=== PATIENT | female | born 1995 | race Caucasian/White ===

== ENCOUNTER 2019-09-05 14:07 | Emergency (ER) | payer SELFPAY ==
[~2019-09-05] VITALS: Ht 160 cm; Wt 88.5 kg
--- NOTE | 2019-09-05 15:55 | NUR ---
CORPORATE SPECIALIST: PT TO ROOM FROM [facility]
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
--- NOTE | 2019-09-05 16:10 | NUR ---
PATIENT REPORTS 30LB UNINTENTIONAL WEIGHT LOSS SINCE SYMPTOMS STARTED.
[2019-09-05 16:39] LABS: BASOPHILS # (AUTO) 0.11 x10^3/uL (0-0.1); BASOPHILS % (AUTO) 1 % (0-1); EOSINOPHILS % (AUTO) 1 % (1-7); LYMPHOCYTES # (AUTO) 2.62 x10^3/uL (1-3.4); LYMPHOCYTES % (AUTO) 23 % (22-44); MD NO; MEAN CORPUSCULAR HEMOGLOBIN 34.8 pg (27.0-34.8); MEAN CORPUSCULAR HGB CONC 33.5 g/dL (32.4-35.8); MEAN CORPUSCULAR VOLUME 103.9 fL (80-100); MEAN PLATELET VOLUME 7.9 fL (7.4-10.4); MONOCYTES # (AUTO) 0.68 x10^3/uL (0.2-0.8); MONOCYTES % (AUTO) 6 % (2-9); NEUTROPHILS # (AUTO) 7.86 x10^3/uL (1.8-6.8); NEUTROPHILS % (AUTO) 69 % (42-75); PLATELET COUNT 331 x10^3/uL (130-400); RED BLOOD COUNT 4.25 x10^6/uL (3.82-5.3); RED CELL DISTRIBUTION WIDTH 14.3 % (9.6-15.2)
--- NOTE | 2019-09-05 16:40 | NUR ---
PATIENT TO ULTRASOUND
[2019-09-05 16:50] LABS: ALBUMIN 4.1 g/dL (3.4-5.0); ANION GAP 8 mmol/L (5-15); CHLORIDE 107 mmol/L (98-107); CREATININE 0.72 mg/dL (0.55-1.02)
--- NOTE | 2019-09-05 17:28 | NUR ---
PATIENT BACK FROM
[2019-09-05 17:49] VITALS: BP 135/84
--- NOTE | 2019-09-05 18:19 | NUR ---
Patient/Caregiver given discharge instructions and they have confirmed that they understand the instructions. Patient ambulatory with steady gait.
== END 2019-09-05 18:27 | disposition home or self-care (01) ==
LOC: ED 18:17
DX: N92.1 Excessive and frequent menstruation with irregular cycle (principal); N93.8 Other specified abnormal uterine and vaginal bleeding; F17.200 Nicotine dependence, unspecified, uncomplicated
CPT/HCPCS: 36415; 76830; 80048; 82040; 85025; 99284

== ENCOUNTER 2020-05-25 03:02 | Emergency (ER) | payer SELFPAY ==
[~2020-05-25] VITALS: Ht 162.6 cm; Wt 75.0 kg
[2020-05-25 03:07] VITALS: BP 116/70
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
[2020-05-25 03:48] LABS: BASOPHILS # (AUTO) 0.02 x10^3/uL (0-0.1); BASOPHILS % (AUTO) 0 % (0-1); EOSINOPHILS # (AUTO) 0.07 x10^3/uL (0-0.4); EOSINOPHILS % (AUTO) 1 % (1-7); LYMPHOCYTES # (AUTO) 2.67 x10^3/uL (1-3.4); LYMPHOCYTES % (AUTO) 33 % (22-44); MD NO; MEAN CORPUSCULAR HEMOGLOBIN 34.5 pg (27.0-34.8); MEAN CORPUSCULAR VOLUME 101.4 fL (80-100); MEAN PLATELET VOLUME 7.7 fL (7.4-10.4); MONOCYTES # (AUTO) 0.62 x10^3/uL (0.2-0.8); MONOCYTES % (AUTO) 8 % (2-9); NEUTROPHILS # (AUTO) 4.71 x10^3/uL (1.8-6.8); NEUTROPHILS % (AUTO) 58 % (42-75); PLATELET COUNT 411 x10^3/uL (130-400); RED BLOOD COUNT 4.06 x10^6/uL (3.82-5.3); RED CELL DISTRIBUTION WIDTH 12.9 % (9.6-15.2)
[2020-05-25 03:55] LABS: ALBUMIN 4.2 g/dL (3.4-5.0); ANION GAP 7 mmol/L (5-15); CALCIUM 8.5 mg/dL (8.5-10.1); CHLORIDE 110 mmol/L (98-107); CREATININE 0.65 mg/dL (0.55-1.02)
[2020-05-25 03:58] LABS: SALICYLATE LEVEL < 1.7 mg/dL (2.8-20.0)
--- NOTE | 2020-05-25 04:30 | NUR ---
PATIENT AND IN ROOM TEARFUL. THEY WERE NOTIFIED OF VISITATION POLICY AND PATIENT BEING ON PSYCH HOLD. HER WAS BEING RELUCTANT TO LEAVE. POLICIES WERE REINFORCED. PREPARING TO HAVE HOSPITAL POLICE ON STANDBY FOR ASSISTANCE.
--- NOTE | 2020-05-25 04:45 | NUR ---
PATIENT AND WERE ARGUING OVER HER CELL PHONE. SHE STATED HE COULD NOT HAVE IT. HOSPITAL POLICE AT BEDSIDE. THE WAS ASKED TO LEAVE AND DID SO WITHOUT INCIDENT.
--- NOTE | 2020-05-25 05:00 | NUR ---
PATIENT ASLEEP YET ROUSABLE TO VOICE. SHE IS IN NO APPARENT DISTRESS. SITTER AT BEDSIDE.
--- NOTE | 2020-05-25 06:01 | NUR ---
PATIENT ASLEEP YET ROUSABLE TO VOICE. SHE IS IN NO APPARENT DISTRESS. SITTER AT BEDSIDE.
--- NOTE | 2020-05-25 06:08 | NUR ---
TP RN: AWAITING PT TO BE REGISTERED TO FAX PACKET. REGISTRATION AWARE AND STATES "PT IS SLEEPING".
--- NOTE | 2020-05-25 06:19 | NUR ---
STANTON RN: PACKET FAXED TO [facility]
--- NOTE | 2020-05-25 07:00 | NUR ---
pt resting calmly in bed. sitter at door. will continue to monitor.
--- NOTE | 2020-05-25 08:40 | NUR ---
PT GIVEN BREAKFAST TRAY. PT ABLE TO AMBULATE TO THE BATHROOM TO PROVIDE A URINE SAMPLE. URINE WALKED DOWN TO LAB. PT COOPERATIVE WITH QUESTIONS AND VITALS THIS AM. GARAGE DOORS LOWERED DOWN, EXCESS DEBRIS PICKED UP FROM FLOOR. SITTER AT DOOR.
[2020-05-25 09:00] LABS: HCG UR SG 1.018 (1.003-1.030)
[2020-05-25 09:01] LABS: AMPHETAMINE SCREEN, URINE Positive (Negative); BARBITURATE SCREEN, URINE Negative (Negative); BENZODIAZEPINE SCREEN, URINE Negative (Negative); CANNABINOID SCREEN, URINE Positive (Negative); COCAINE SCREEN, URINE Positive (Negative); METHADONE SCREEN, URINE Negative (Negative); OPIATE SCREEN, URINE Negative (Negative)
--- NOTE | 2020-05-25 09:12 | NUR ---
PT HERE VISITING. PT APPROVED TO COME SEE HER. NOT DRUNK. VISIT APPEARS PEACEFUL AT THIS TIME. SITTER REMAINS AT DOOR.
--- NOTE | 2020-05-25 10:31 | NUR ---
pt resting in bed with at bedside. sitter remains at bedside. will conitnue to monitor.
--- NOTE | 2020-05-25 11:25 | NUR ---
PT REMAINS LAYING IN BED CALMLY. NO STATED NEEDS. AT BEDSIDE. VISIT REMAINS PEACEFUL. WILL CONTINUE TO MONITOR. SITTER AT BEDSIDE.
--- NOTE | 2020-05-25 12:21 | NUR ---
PSYCH ENVIRONMENTAL PROJECTS ADVISOR IN TO SEE PT. PT GIVEN FOOD TRAY AFTER ENVIRONMENTAL PROJECTS ADVISOR VISIT. SITTER AT DOOR. WILL CONTINUE TO MONITOR.
== END 2020-05-25 12:47 | disposition home or self-care (01) ==
LOC: ED 06:08
DX: R45.851 Suicidal ideations (principal); F10.120 Alcohol abuse with intoxication, uncomplicated; F17.210 Nicotine dependence, cigarettes, uncomplicated; Y90.0 Blood alcohol level of less than 20 mg/100 ml
CPT/HCPCS: 36415; 80048; 80307; 81025; 82040; 84703; 85025; 99284; 99406